=== PATIENT | female | born 1950 | race Caucasian/White ===

== ENCOUNTER 2018-05-25 06:47 | Day surgery (SDC) | payer OTHER ==
[2018-05-25] MEDS ORDERED: FENTAnyl 50 MCG/ML VIAL (09:57)
[2018-05-25] MEDS ORDERED: LIDOCAINE 4% SOLUTION 50 ML BTL (09:57)
[2018-05-25] MEDS ORDERED: MIDAZOLAM 1 MG/ML 2 ML INJ ×2 (09:57)
== END 2018-05-25 11:02 | disposition home or self-care (01) ==
LOC: GIL 06:47
DX: K29.30 Chronic superficial gastritis without bleeding (principal); K26.9 Duodenal ulcer, unspecified as acute or chronic, without hemorrhage or perforation
CPT/HCPCS: 43239; 88305; 88312

== ENCOUNTER 2018-06-24 06:51 | Day surgery (SDC) | payer OTHER ==
[2018-06-24] MEDS ORDERED: FENTAnyl 50 MCG/ML VIAL (08:26)
[2018-06-24] MEDS ORDERED: MIDAZOLAM 1 MG/ML 2 ML INJ ×2 (08:26)
== END 2018-06-24 11:30 | disposition home or self-care (01) ==
LOC: GIL 06:51
DX: Z12.11 Encounter for screening for malignant neoplasm of colon (principal); K64.0 First degree hemorrhoids; I10 Essential (primary) hypertension
CPT/HCPCS: 45378